=== PATIENT | male | born 1985 | race Caucasian/White ===

== ENCOUNTER 2016-12-06 16:11 | Emergency (ER) | payer OTHER ==
--- NOTE | ~2016-12-06 | CR72 ---
[facility]. [facility] A Service of [facility] & [facility] RADIOLOGY TEXT RESULTS PATIENT: ADAMS ENRIQUE JR LOCATION: SED : 81 UNIT #: [id number] AGE: [address]: Maxi Brand MD SEX: M ORDER DR: [id number] [place] [id number] E MR#: [id number] Acc #: [id number] NAME: ADAMS ENRIQUE JR : 1985 SEX: M STUDY DATE/TIME: 12/06/2016 16:47 UNIT: SED ROOM: STUDY DESCRIPTION: CR Chest Single View Portable Attending Physician: Maxi Brand M.D. Ordering Physician: Maxi Brand M.D. Primary Care Physician: No Primary Care Physician MEDICAL IMAGING REPORT This report is preliminary unless electronic signature is present. EXAM Portable chest, 12/06/2016 HISTORY A 31-year-old male with chest pain beginning today. COMPARISON STUDIES Chest 01/29/2011 FINDINGS Frontal chest demonstrates clear lungs. No pleural effusion or pneumothorax. Heart size and mediastinum are normal. Pulmonary vasculature normal. IMPRESSION No acute cardiopulmonary findings Dictated by... Gagandeep Scott M.D. THIS IS AN ELECTRONICALLY VERIFIED REPORT Gagandeep Scott M.D. at 12/09/2016 1:19 PM SHANT/nika TD: 12/06/2016 21:25 JOB #: [id number] MEDICAL IMAGING REPORT Page 1 of 1
--- NOTE | ~2016-12-06 | EKG ---
PATIENT: ADAMS ENRIQUE UNIT #: [id number] Ventricular Rate: 76 BPM Atrial Rate: 76 BPM P-R Interval: 140 ms QRS Duration: 90 ms Q-T Interval: 360 ms QTC Calculation(Bezet): 405 ms P [place]: 37 degrees Calculated R [place]: 16 degrees Calculated T [place]: 46 degrees Diagnosis Line: Normal sinus rhythm with sinus arrhythmia Diagnosis Line: Normal ECG Diagnosis Line: No previous ECGs available Diagnosis Line: Confirmed by JACKELIN BAILON MD ([id number]) on Diagnosis Line: 12/11/2016 8:38:33 AM INTERPRETING MD: UVALDO SOSA
[~2016-12-06 16:11] MED LIST: ACYCLOVIR PO; BACTRIM DS TABL1 TA1 PO; BENADRYL PO; CLEOCIN PO; FLEXERIL10 MG PO; IBUPROFEN800 MG; IBUPROFEN800 MG PO; KEFLEX500 M2 PO; LORTAB 5/500 TA1 TA1 PO; LORTAB 5/500 TA1 TA2 PO; LORTAB 7.5-5001 TAB PO; LOTRISONE CREAM45 GM TOP; NAPROXEN PO; NO MEDICATIONS; PENICILLIN PO; PHENERGAN DM1 ML PO; PHENERGAN PO; PREDNISONE; SKELAXIN PO; VICODIN 5/500 T1 TAB PO; ZANTAC; ZITHROMAX PO; ZYRTEC10 M2 PO
[2016-12-06] MEDS ORDERED: NO MEDICATIONS (16:15)
[2016-12-06 16:44] LABS: BASOPHIL# 0.1 X10e3 (0-0.3); BASOPHIL% 0.7 % (0-2.5); EOSINOPHIL# 0.2 X10e3 (0-0.7); EOSINOPHIL% 2.2 % (0.0-7.0); HEMATOCRIT 47.6 % (38.0-50.0); HEMOGLOBIN 15.7 gm/dL (13.0-16.0); LYMPHOCYTE# 2.1 X10e3 (1.0-3.5); LYMPHOCYTE% 18.7 % (17.0-45.0); MEAN CELL VOLUME 91.2 FL (83-96); MEAN CORPUSCULAR HEMOGLOBIN 30.1 PG (28-34); MEAN PLATELET VOLUME 8.4 FL (6.5-11.5); MONOCYTE# 0.6 X10e3 (0-1.0); MONOCYTE% 5.8 % (3.0-12.0); NEUTROPHIL# 8.1 X10e3 (1.5-7.1); NEUTROPHIL% 72.6 % (40-75); PLATELET COUNT 228 X10e3 (140-420); RED BLOOD COUNT 5.22 X10e (3.90-5.60); RED CELL DISTRIBUTION WIDTH 15.3 % (11.0-15.5); WHITE BLOOD COUNT 11.1 X10e3 (4.0-10.5)
[2016-12-06 16:55] LABS: DIFF IND NO
[2016-12-06 17:06] LABS: POC - CKMB 3.9 ng/mL (0.0-7.9); POC - TROPONIN <0.05 ng/mL (<=0.05)
[2016-12-06 17:08] LABS: BUN/CREATININE RATIO 13.63; CALCIUM SERUM 9.1 mg/dL (8.4-10.2); CREATININE SERUM 1.1 mg/dL (0.6-1.4); GLOM FILT RATE Estimated 87.8 mL/min (>60); POTASSIUM 3.7 mmol/L (3.5-5.1)
== END 2016-12-06 17:52 | disposition home or self-care (01) ==
LOC: SED 16:11
PROVIDERS: Emergency Medicine
DX: R07.89 Other chest pain (principal); T67.5XXA Heat exhaustion, unspecified, initial encounter; F17.200 Nicotine dependence, unspecified, uncomplicated
CPT/HCPCS: 71010; 80048; 82553; 84484; 85025; 93005; 96361; 96374; 96375; 99285; J1885; J2405